=== PATIENT | female | born 1960 | race Two or more races ===

== ENCOUNTER 2017-07-08 12:16 | Emergency (ER) | payer MEDICAID, OTHER ==
[~2017-07-08] VITALS: Ht 154.9 cm; Wt 80.0 kg
[2017-07-08] MEDS ORDERED: ASPIRIN 81 MG TABLET CHEW PO ONE (13:00)
[2017-07-08] MEDS ORDERED: MAALOX/HYOSCYAMINE/LIDOCAINE 45 ML BTL PO ONE (13:00)
[2017-07-08] MEDS ORDERED: ONDANSETRON ODT 4 MG PO ONE (13:00)
[2017-07-08] MEDS ORDERED: ONDANSETRON ODT 4 MG ONE (13:10)
[2017-07-08] MEDS ORDERED: ASPIRIN 81 MG TABLET CHEW ONE (13:10)
[2017-07-08] MEDS ORDERED: MAALOX/HYOSCYAMINE/LIDOCAINE 45 ML BTL ONE (13:11)
[2017-07-08 13:32] LABS: ASPARTATE AMINO TRANSFERASE 12 U/L (15-37); BLOOD UREA NITROGEN 10 mg/dL (7-18)
[2017-07-08 13:45] LABS: IS PT STATUS REG ER OR PRE ER? YES
[2017-07-08 14:15] LABS: HEMATOCRIT 33.6 % (34.6-47.8); HEMOGLOBIN 11.4 g/dL (11.7-16.4)
[2017-07-08 14:45] LABS: DIFF TOTAL CELLS COUNTED 100 CELL DIFF
[2017-07-08 14:56] LABS: ANISOCYTOSIS 1+; VERIFY COUNTS? YES
[2017-07-08] MEDS ORDERED: HYDROcodone/APAP 5/325 TABLET PO ONE (15:00)
[2017-07-08] MEDS ORDERED: HYDROcodone/APAP 5/325 TABLET ONE (15:11)
[2017-07-08] MEDS ORDERED: LIDOCAINE 1%, 10ML INFIL ONE (16:00)
[2017-07-08] MEDS ORDERED: LIDOCAINE 1%, 20ML ONE (16:05)
[2017-07-08] MEDS ORDERED: KETOROLAC 30 MG/1 ML ONE (16:28)
[2017-07-08] MEDS ORDERED: KETOROLAC 30 MG/1 ML IM ONE (16:30)
[2017-07-08 19:40] VITALS: BP 127/70
== END 2017-07-08 19:55 | disposition home or self-care (01) ==
LOC: ED 13:13
DX: M25.462 Effusion, left knee (principal); M71.22 Synovial cyst of popliteal space [Baker], left knee; M19.072 Primary osteoarthritis, left ankle and foot; R07.89 Other chest pain
CPT/HCPCS: 20610; 36415; 71010; 73564; 80053; 81003; 82945; 83615; 83690; 83880; 84157; 84484; 84560; 85025; 85810; 87070; 87205; 89050; 89060; 93005; 93971; 96372; 99285; J1885; Q0162

== ENCOUNTER 2017-07-11 17:21 | Emergency (ER) | payer SELFPAY ==
[~2017-07-11] VITALS: Ht 154.9 cm; Wt 82.2 kg
[2017-07-11 18:13] LABS: BLOOD UREA NITROGEN 11 mg/dL (7-18)
[2017-07-11] MEDS ORDERED: HYDROmorphone 1 MG/ML, 1ML ONE ×2 (18:14→18:17)
[2017-07-11] MEDS ORDERED: ONDANSETRON 2MG/ML, 2ML ONE (18:14)
[2017-07-11 18:24] LABS: HEMATOCRIT 34.6 % (34.6-47.8)
[2017-07-11 18:28] LABS: WHITE BLOOD COUNT 1.9 x10^3/uL (3.4-10)
[2017-07-11] MEDS ORDERED: SODIUM CHLORIDE FLUSH 10ML SYR IVF ONE (18:30)
[2017-07-11] MEDS ORDERED: HYDROmorphone 1 MG/ML, 1ML IVPush PRN (18:30)
[2017-07-11] MEDS ORDERED: ONDANSETRON 2MG/ML, 2ML IVPush ONE (18:30)
[2017-07-11] MEDS ORDERED: SODIUM CHLORIDE 0.9% 1,000ML IVBOLUS ONE (18:30)
[2017-07-11 18:35] LABS: DIFF TOTAL CELLS COUNTED 100 CELL DIFF
[2017-07-11 18:39] LABS: ANISOCYTOSIS 1+
[2017-07-11 18:41] LABS: VERIFY COUNTS? YES
[2017-07-11 20:09] VITALS: BP 138/78
== END 2017-07-11 20:13 | disposition home or self-care (01) ==
LOC: ED 17:54
DX: M25.462 Effusion, left knee (principal); E66.9 Obesity, unspecified; Z90.49 Acquired absence of other specified parts of digestive tract; Z90.710 Acquired absence of both cervix and uterus; Z86.73 Personal history of transient ischemic attack (TIA), and cerebral infarction without residual deficits
CPT/HCPCS: 36415; 73564; 80048; 82040; 83605; 84145; 85025; 85651; 86140; 87040; 96374; 96375; 99285; J1170; J2405; J7030